=== PATIENT | female | born 1975 | race Asian ===

== ENCOUNTER 2022-01-21 13:23 | Day surgery (SDC) | payer BC ==
[2022-01-21 14:00] VITALS: BP 110/74; TEMP 97.8
[2022-01-21] MEDS ORDERED: Sodium Bicarbonate 2.5 MEQ/5 ML VIAL ONE (14:33)
== END 2022-01-21 15:35 | disposition home or self-care (01) ==
LOC: CSHULT 13:23
PROVIDERS: ATTEND Internal Medicine Endocrinology, Diabetes & Metabolism
PROC: 0G9G3ZX Drainage of Left Thyroid Gland Lobe, Percutaneous Approach, Diagnostic (ICD-10-PCS; principal; 2022-01-21)
DX: E04.1 Nontoxic single thyroid nodule (principal)
CPT/HCPCS: 60100; 76942; 88173; 88305

== ENCOUNTER 2022-10-17 15:52 | Outpatient (CLI) | payer BC | END 2022-10-17 15:53 | disposition home or self-care (01) | LOC: CSHRAD 15:52 | PROVIDERS: ATTEND Family Medicine | DX: M54.50 Low back pain, unspecified (principal); M25.552 Pain in left hip; M47.817 Spondylosis without myelopathy or radiculopathy, lumbosacral region | CPT/HCPCS: 72100 ==

== ENCOUNTER 2022-11-20 15:46 | Outpatient (CLI) | payer BC | END 2022-11-20 15:47 | disposition home or self-care (01) | LOC: CSHMRI 15:46 | PROVIDERS: ATTEND Family Medicine | DX: M51.16 Intervertebral disc disorders with radiculopathy, lumbar region (principal); M47.816 Spondylosis without myelopathy or radiculopathy, lumbar region; M48.07 Spinal stenosis, lumbosacral region | CPT/HCPCS: 72148 ==